=== PATIENT | female | born 1975 | race Caucasian/White ===

== ENCOUNTER 2017-11-01 13:37 | Emergency (ER) | payer MEDICAID, OTHER ==
[2017-11-01 15:37] VITALS: RESP 18
--- NOTE | 2017-11-01 16:41 | C.PDOC ---
History Of Present Illness 42-year-old female, presents to the emergency department with complaints of knee pain. Patient slipped on ice yesterday and landed directly on her left knee. States she took pain medication and put ice on the area, which resolved the pain. When she woke up this morning, pain returned and worsened, resulting in her coming to the ED for evaluation. Denies any numbness/weakness, nausea/ vomiting, fevers or any other associated symptoms. No other complaints at this time. Chief Complaint (Nursing): Lower Extremity Problem/Injury History Per: Patient History/Exam Limitations: no limitations Past Medical History Reviewed: Historical Data, Nursing Documentation, Vital Signs Vital Signs: Last Vital Signs Temp 98.4 F 11/01/17 19:15 Pulse 80 11/01/17 19:15 Resp 18 11/01/17 19:15 BP 180/125 H 11/01/17 19:15 Pulse Ox 100 11/01/17 19:15 Family History: States: No Known Family Hx - Social History Hx Alcohol Use: No Hx Substance Use: No - Immunization History Hx Influenza Vaccination: No Hx Pneumococcal Vaccination: No Review Of Systems Constitutional: Negative for: Fever Musculoskeletal: Positive for: Other (Left knee pain) Neurological: Negative for: Weakness, Numbness Physical Exam - Physical Exam Appears: Non-toxic, No Acute Distress Skin: Warm, Dry, No Rash Head: Atraumatic, Normacephalic Neck: Normal ROM Cardiovascular: Rhythm Regular, No Murmur Respiratory: Normal Breath Sounds, No Accessory Muscle Use Extremity: No Normal ROM (Painful range of motion), Tenderness, Capillary Refill (<2 seconds), No Deformity, Other ((+)contusion. No effusion, No laxity, (-)Sarah test, (-)anterior drawer test, (-)varus valgus test.) Neurological/Psych: Oriented x3, Normal Speech ED Course And Treatment O2 Sat by Pulse Oximetry: 100 (RA) Pulse Ox Interpretation: Normal Medical Decision Making Medical Decision Making: Plan: * XR L Knee * Motrin * Reassess and Disposition Disposition - Disposition Referrals: [facility] [Outside] Disposition: HOME/ ROUTINE Disposition Time: 19:25 Condition: GOOD Prescriptions: Labetalol [Trandate] 100 mg PO BID #[id number] tab Instructions: Knee Pain (ED), Hypertension (ED) Forms: [facility] (Portuguese), Work Excuse Print Language: YORUBA - Clinical Impression Clinical Impression: Knee contusion - Scribe Statement The provider has reviewed the documentation as recorded by the Scribe (Bandar Finley) All medical record entries made by the Scribe were at my direction and personally dictated by me. I have reviewed the chart and agree that the record accurately reflects my personal performance of the history, physical exam, medical decision making, and the department course for this patient. I have also personally directed, reviewed, and agree with the discharge instructions and disposition.
[2017-11-01] MEDS ORDERED: Labetalol 25mg/5ml Syringe IVP STA ×2 (17:24→18:35)
[2017-11-01] MEDS ORDERED: Labetalol 25mg/5ml Syringe ONE (17:39)
--- NOTE | 2017-11-01 17:57 | RAD ---
PROCEDURE: Left Knee Radiographs. HISTORY: COMPARISON: None available. FINDINGS: Examination limited by habitus. BONES: No acute displaced fracture. JOINTS: No dislocation. JOINT EFFUSION: No significant joint effusion. OTHER FINDINGS: None. IMPRESSION: No acute displaced fracture, dislocation, or significant joint effusion identified. If symptoms persist, or if there is continued clinical concern, x-ray follow-up in 7-10 days should be considered.
[2017-11-01 19:27] VITALS: BP 180/125; PULSE 80; TEMP 98.4; O2SAT 100
== END 2017-11-01 19:27 | disposition home or self-care (01) ==
LOC: C.ER 13:37
DX: S80.02XA Contusion of left knee, initial encounter (principal); W00.0XXA Fall on same level due to ice and snow, initial encounter